=== PATIENT | male | born 1970 | race African-American/Black ===

== ENCOUNTER 2016-09-01 20:36 | Emergency (ER) | payer OTHER ==
[~2016-09-01] VITALS: Ht 186.7 cm; Wt 109.0 kg
[~2016-09-01 20:36] MED LIST: CYCL5TAB PO; NAPR-576 PO; VASE1025 PO
[2016-09-01 20:38] VITALS: BP 174/96; PULSE 96; RESP 16; TEMP 98; O2SAT 98
[2016-09-01] MEDS ORDERED: ENAL10TA PO (20:48)
[2016-09-01] MEDS ORDERED: ATOR20TA15 PO (20:49)
[2016-09-01] MEDS ORDERED: LISI10TA3 PO (20:49)
[2016-09-01] MEDS ORDERED: AMLO10TA2 PO (20:53)
[2016-09-01] MEDS ORDERED: HYDROCHLOROTHIAZIDE PO (20:54)
[2016-09-01] MEDS ORDERED: ENALAPRIL PO (20:54)
[2016-09-01 20:55] VITALS: BP 177/94; PULSE 64; RESP 18; O2SAT 99
[2016-09-01] MEDS ORDERED: MECLIZINE HCL 25 MG TAB PO ONE (21:00)
[2016-09-01] MEDS ORDERED: SODIUM CHLORIDE 0.9% FLUSH 5 ML FLUSH IVF PRN (21:00)
[2016-09-01] MEDS ORDERED: ONDANSETRON HCL 4 MG/2 ML VIAL IVP ONE (21:00)
[2016-09-01] MEDS ORDERED: SODIUM CHLOR 0.9% 1000 ML INJ 1,000 ML IV ONE (21:00)
--- NOTE | 2016-09-01 21:27 | PD ---
HPI Chief Complaint: Dizziness Time Seen by Provider: 21:20 Travel History International Travel<30 days: No Contact w/Intl Traveler<30days: No Traveled to known affect area: No History of Present Illness HPI 46-year-old male with a history of hypertension and hyperlipidemia presents to the emergency department for evaluation of dizziness, nausea and foreign body sensation in his throat. The patient states that the dizziness began about 4 days ago. States that he feels like his balance is a little off when he is walking and he feels dizziness when he gets up too quickly. States he also has had some associated nausea. Denies any vomiting. States that 2 days ago after he was eating a meal he felt as though he had something stuck in his throat. States that this sensation has persisted over the past several days. He is unsure what he was eating when this occurred. Denies any fever, chills, chest pain, shortness of breath, difficulty swallowing, difficulty breathing, sore throat, cough or cold symptoms, abdominal pain, numbness or tingling, weakness, headache. PCP is Dr. Fox. No other complaints. PFSH Past Medical History Cardiovascular Problems: Yes (HTN) High Cholesterol: Yes Diminished Hearing: No Hypertension: Yes Immunizations Current: No Tetanus Vaccination: Unknown Influenza Vaccination: No Social History Alcohol Use: Yes (occasional ) Tobacco Use: No Substance Use: No Allergies-Medications (Allergen,Severity, Reaction): Coded Allergies: No Known Allergies (Unverified , 09/01/16) Reported Meds & Prescriptions Reported Meds & Active Scripts Active Zofran (Ondansetron HCl) 4 Mg Tab 4 Mg PO Q8HR PRN Meclizine (Meclizine HCl) 25 Mg Tab 25 Mg PO TID PRN 7 Days Reported [Hctz/Enalapril] Unknown Dose PO Amlodipine (Amlodipine Besylate) 10 Mg Tab 10 Mg PO DAILY Atorvastatin (Atorvastatin Calcium) 20 Mg Tab 20 Mg PO HS Enalapril (Enalapril Maleate) 10 Mg Tab 10 Mg PO DAILY Review of Systems Except as stated in HPI: all other systems reviewed are Neg Physical Exam Narrative GENERAL: Well-nourished and well-developed pleasant male patient in no acute distress who is nontoxic appearing. SKIN: Warm and dry. HEAD: Normocephalic and atraumatic. EYES: No injection, drainage, or hyphema noted. PERRLA. EOMI. ENT: No nasal drainage noted. Oropharynx is clear and the airway is patent. Handling secretions without difficulty. TMs are normal with good landmarks. NECK: Supple and the trachea is midline. CARDIOVASCULAR: Regular rate and rhythm. RESPIRATORY: Breath sounds are equal bilaterally with no accessory muscle use, wheezing, rhonchi, or crackles. GASTROINTESTINAL: Abdomen is soft, non-tender, and nondistended. MUSCULOSKELETAL: No obvious deformities, swelling, cyanosis, or ecchymosis is present throughout the upper and lower extremities. Patient has full range of motion without any signs of neurovascular compromise. 5/5 upper and lower extremities equal bilaterally. NEUROLOGICAL: Awake, alert, and oriented. Normal finger to nose test. Normal [id number] test. Normal speech and gait. Cranial nerves are grossly intact. Data Data Last Documented VS Vital Signs Date Time Temp Pulse Resp B/P Pulse Ox O2 Delivery O2 Flow Rate FiO2 09/01/16 20:55 64 18 177/94 99 Room Air 09/01/16 20:38 98.0 Orders Electrocardiogram (09/01/16 21:00) Complete Blood Count With Diff (09/01/16 21:00) Comprehensive Metabolic Panel (09/01/16 21:00) Ecg Monitoring (09/01/16 21:00) Iv Access Insert/Monitor (09/01/16 21:00) Oximetry (09/01/16 21:00) Meclizine (Antivert) (09/01/16 21:00) Ondansetron Inj (Zofran Inj) (09/01/16 21:00) Sodium Chloride 0.9% Flush (Ns Flush) (09/01/16 21:00) Sodium Chlor 0.9% 1000 Ml Inj (Ns 1000 M (09/01/16 21:00) Lipase (09/01/16 21:00) Soft Tissue Neck (09/01/16 ) Potassium Cl 40 Meq/30 Ml Liq (Kcl 40 Me (09/01/16 22:30) Labs Laboratory Tests Test 09/01/16 21:10 White Blood Count 5.1 TH/MM3 Red Blood Count 4.54 MIL/MM3 Hemoglobin 12.9 GM/DL Hematocrit 39.0 % Mean Corpuscular Volume 85.8 FL Mean Corpuscular Hemoglobin 28.5 PG Mean Corpuscular Hemoglobin 33.2 % Concent Red Cell Distribution Width 13.1 % Platelet Count 194 TH/MM3 Mean Platelet Volume 10.0 FL Neutrophils (%) (Auto) 50.4 % Lymphocytes (%) (Auto) 35.3 % Monocytes (%) (Auto) 11.5 % Eosinophils (%) (Auto) 2.1 % Basophils (%) (Auto) 0.7 % Neutrophils # (Auto) 2.6 TH/MM3 Lymphocytes # (Auto) 1.8 TH/MM3 Monocytes # (Auto) 0.6 TH/MM3 Eosinophils # (Auto) 0.1 TH/MM3 Basophils # (Auto) 0.0 TH/MM3 CBC Comment DIFF FINAL Differential Comment Sodium Level 141 MEQ/L Potassium Level 3.1 MEQ/L Chloride Level 105 MEQ/L Carbon Dioxide Level 27.5 MEQ/L Anion Gap 9 MEQ/L Blood Urea Nitrogen 12 MG/DL Creatinine 0.80 MG/DL Estimat Glomerular Filtration 125 ML/MIN Rate Random Glucose 121 MG/DL Calcium Level 7.9 MG/DL Total Bilirubin 0.3 MG/DL Aspartate Amino Transf 16 U/L (AST/SGOT) Alanine Aminotransferase 28 U/L (ALT/SGPT) Alkaline Phosphatase 58 U/L Total Protein 6.8 GM/DL Albumin 3.2 GM/DL Lipase 111 U/L [facility] Medical Decision Making Medical Screen Exam Complete: Yes Emergency Medical Condition: Yes Differential Diagnosis Electrolyte abnormality versus vertigo versus dehydration versus foreign body sensation versus other Narrative Course 46-year-old male presents to the emergency department for evaluation of dizziness, nausea and form body sensation in the throat. Patient is afebrile. He is a little hypertensive with a blood pressure 177/94, admits that he did not take his blood pressure medication this morning like he normally does. Otherwise vital signs are stable. Physical examination is unremarkable. Patient appears very well overall. No focal neurologic deficits. IV access is obtained, labs drawn and sent. EKG shows sinus rhythm, no acute ST elevations or depressions. No prior for comparison. Patient is administered meclizine 50 mg orally, IV fluids and Zofran. X-ray soft tissue of the neck is negative for foreign body or any acute abnormality. CBC is unremarkable. CMP shows mild hypokalemia with a potassium of 3.1, normal platelets orally with 40 mEq by mouth. Otherwise unremarkable. Lipase is normal. Patient reassessed after receiving medications and reports improvement of symptoms. The patient's symptoms are consistent with vertigo. Discussed with him that this foreign body sensation in the throat will need to be evaluated by an ENT if it persists. He'll be discharged with meclizine and Zofran. Advised follow-up with his PCP. Patient verbalizes understanding and agreement with treatment plan. I discussed the case with my attending physician Dr. Haywood who is aware of the patients history, physical examination findings, and treatment plan. Diagnosis Primary Impression: Vertigo Additional Impression: Sensation of foreign body in throat Referrals: Primary Care Physician Patient Instructions: General Instructions, Vertigo (ED) Departure Forms: Tests/Procedures, Work Release Enter return to work date: Sep 06, 2016 Additional Instructions: Take medications as prescribed. Follow-up with your Primary Care Physician. Return to the ED for any acute worsening of symptoms. Med/Other Pt SpecificInfo: Prescription(s) given Scripts Ondansetron (Zofran)4 Mg Tab4 Mg PO Q8HR PRN (NAUSEA OR VOMITING) #10 TAB Ref 0 Prov:Thalia Haywood MD 09/01/16 Meclizine 25 Mg Tab25 Mg PO TID PRN (VERTIGO) 7 Days Ref 0 Prov:Thalia Haywood MD 09/01/16 Disposition: 01 DISCHARGE HOME Condition: Stable Nae Mendoza Sep 01, 2016 21:26
--- NOTE | 2016-09-01 21:32 | RADRPT ---
EXAM DATE/TIME: 09/01/2016 21:26 [facility] COMPARISON: No previous studies available for comparison. INDICATIONS : Patient states feels that something is stuck in his throat. He has had this feeling for a week and a half. MEDICAL HISTORY : None. SURGICAL HISTORY : None. ENCOUNTER: Initial ACUITY: 1 week PAIN SCORE: 0/10 LOCATION: Neck. FINDINGS: Two view examination of the soft tissues of the neck demonstrates the hypopharyngeal airway to have a grossly normal configuration. The trachea is midline. No radiopaque foreign bodies are seen. There is degenerative change anterior spurring of cervical spine most marked C3 through C. 5/6. Anterior s purring encroaches upon the retropharyngeal space and probably abuts the esophagus. In the appropriat e clinical setting this could be evaluated with a barium swallow on an elective outpatient basis. CONCLUSION: Negative for radiopaque foreign body. Anterior marginal spurs cervical spine C3 through C6 which mild ly encroaches upon the retropharyngeal space. Raffy Joe MD on September 01, 2016 at 21:28 Board Certified Radiologist. This report was verified electronically.
[2016-09-01 22:06] LABS: AUTOMATED NEUTROPHIL # 2.6 TH/MM3 (1.8-7.7); BASOPHIL % 0.7 % (0.0-2.0); EOSINOPHIL # 0.1 TH/MM3 (0-0.4); EOSINOPHIL % 2.1 % (0.0-4.0); HEMO FLAGS DIFF FINAL; LYMPH % 35.3 % (9.0-44.0); LYMPHOCYTE # 1.8 TH/MM3 (1.0-4.8); MEAN CELL VOLUME 85.8 FL (80.0-100.0); MEAN CORPUSCULAR HEMOGLOBIN 28.5 PG (27.0-34.0); MEAN CORPUSCULAR HGB CONC 33.2 % (32.0-36.0); MONO % 11.5 % (0.0-8.0); NEUT % 50.4 % (16.0-70.0); PLATELET COUNT 194 TH/MM3 (150-450); RED BLOOD COUNT 4.54 MIL/MM3 (4.50-5.90); RED CELL DISTRIBUTION WIDTH 13.1 % (11.6-17.2); WHITE BLOOD COUNT 5.1 TH/MM3 (4.0-11.0)
[2016-09-01 22:16] LABS: ANION GAP 9 MEQ/L (5-15); AST (GOT) 16 U/L (15-37); BICARBONATE 27.5 MEQ/L (21.0-32.0); BLOOD UREA NITROGEN 12 MG/DL (7-18); CHLORIDE 105 MEQ/L (98-107); GLOMERULAR FILTRATION RATE 125 ML/MIN (>89); POTASSIUM 3.1 MEQ/L (3.5-5.1); SODIUM (NA) 141 MEQ/L (136-145)
[2016-09-01 22:20] LABS: ALKALINE PHOSPHATASE 58 U/L (45-117); ALT (GPT) 28 U/L (12-78); TOTAL BILIRUBIN ADULT 0.3 MG/DL (0.2-1.0)
[2016-09-01] MEDS ORDERED: ZOFR4TAB PO (22:30)
[2016-09-01] MEDS ORDERED: MECL-62 PO (22:30)
[2016-09-01] MEDS ORDERED: POTASSIUM CL 40 MEQ/30 ML LIQ UDC PO ONE (22:30)
[2016-09-01 22:32] VITALS: BP 155/90; PULSE 65; RESP 18; O2SAT 98
--- NOTE | 2016-09-01 22:33 | PD ---
Physical Exam Date Seen by Provider: Sep 01, 2016 Narrative Patient presents with dizziness Data Data Last Documented VS Vital Signs Date Time Temp Pulse Resp B/P Pulse Ox O2 Delivery O2 Flow Rate FiO2 09/01/16 20:55 64 18 177/94 99 Room Air 09/01/16 20:38 98.0 Orders Electrocardiogram (09/01/16 21:00) Complete Blood Count With Diff (09/01/16 21:00) Comprehensive Metabolic Panel (09/01/16 21:00) Ecg Monitoring (09/01/16 21:00) Iv Access Insert/Monitor (09/01/16 21:00) Oximetry (09/01/16 21:00) Meclizine (Antivert) (09/01/16 21:00) Ondansetron Inj (Zofran Inj) (09/01/16 21:00) Sodium Chloride 0.9% Flush (Ns Flush) (09/01/16 21:00) Sodium Chlor 0.9% 1000 Ml Inj (Ns 1000 M (09/01/16 21:00) Lipase (09/01/16 21:00) Soft Tissue Neck (09/01/16 ) Potassium Cl 40 Meq/30 Ml Liq (Kcl 40 Me (09/01/16 22:30) Labs Laboratory Tests Test 09/01/16 21:10 White Blood Count 5.1 TH/MM3 Red Blood Count 4.54 MIL/MM3 Hemoglobin 12.9 GM/DL Hematocrit 39.0 % Mean Corpuscular Volume 85.8 FL Mean Corpuscular Hemoglobin 28.5 PG Mean Corpuscular Hemoglobin 33.2 % Concent Red Cell Distribution Width 13.1 % Platelet Count 194 TH/MM3 Mean Platelet Volume 10.0 FL Neutrophils (%) (Auto) 50.4 % Lymphocytes (%) (Auto) 35.3 % Monocytes (%) (Auto) 11.5 % Eosinophils (%) (Auto) 2.1 % Basophils (%) (Auto) 0.7 % Neutrophils # (Auto) 2.6 TH/MM3 Lymphocytes # (Auto) 1.8 TH/MM3 Monocytes # (Auto) 0.6 TH/MM3 Eosinophils # (Auto) 0.1 TH/MM3 Basophils # (Auto) 0.0 TH/MM3 CBC Comment DIFF FINAL Differential Comment Sodium Level 141 MEQ/L Potassium Level 3.1 MEQ/L Chloride Level 105 MEQ/L Carbon Dioxide Level 27.5 MEQ/L Anion Gap 9 MEQ/L Blood Urea Nitrogen 12 MG/DL Creatinine 0.80 MG/DL Estimat Glomerular Filtration 125 ML/MIN Rate Random Glucose 121 MG/DL Calcium Level 7.9 MG/DL Total Bilirubin 0.3 MG/DL Aspartate Amino Transf 16 U/L (AST/SGOT) Alanine Aminotransferase 28 U/L (ALT/SGPT) Alkaline Phosphatase 58 U/L Total Protein 6.8 GM/DL Albumin 3.2 GM/DL Lipase 111 U/L MDM Supervised Visit with TAWNYA: Yes Narrative Course I, Dr. Haywood, have reviewed the advance practice practitioner's documentation and am in agreement, met with the patient face to face, made the diagnosis, and the medical decision making was done by me. *My assessment and Findings: Patient is awake and alert and fully oriented. He states that his dizziness is resolved. Scripts Ondansetron (Zofran)4 Mg Tab4 Mg PO Q8HR PRN (NAUSEA OR VOMITING) #10 TAB Ref 0 Prov:Thalia Haywood MD 09/01/16 Meclizine 25 Mg Tab25 Mg PO TID PRN (VERTIGO) 7 Days Ref 0 Prov:Thalia Haywood MD 09/01/16 Thalia Haywood MD Sep 01, 2016 22:33
--- NOTE | 2016-09-02 17:23 | EKG ---
Date Performed: 09/01/2016 Time Performed: 21:24:51 PTAGE: 46 years EKG: Sinus rhythm WITH FIRST DEGREE AV BLOCK ABNORMAL ECG NO PREVIOUS TRACING DOCTOR: Rebecca Pruitt Interpretating Date/Time 09/02/2016 17:16:59
== END 2016-09-01 23:11 | disposition home or self-care (01) ==
LOC: NEPA 20:36
DX: R42 Dizziness and giddiness (principal); R09.89 Other specified symptoms and signs involving the circulatory and respiratory systems; I10 Essential (primary) hypertension
CPT/HCPCS: 70360; 80053; 83690; 85025; 93005; 96361; 96374; 99284; J2405; J7030

== ENCOUNTER 2016-09-05 15:15 | Emergency (ER) | payer OTHER ==
[~2016-09-05 15:15] MED LIST changes: +AMLO10TA2 PO; +ATOR20TA15 PO; -CYCL5TAB PO; +ENAL10TA PO; +ENALAPRIL PO; +HYDROCHLOROTHIAZIDE PO; +MECL-62 PO; -NAPR-576 PO; -VASE1025 PO; +ZOFR4TAB PO
[2016-09-05 15:16] VITALS: BP 161/98; PULSE 88; RESP 15; TEMP 97.9; O2SAT 99
== END 2016-09-05 15:30 | disposition left against medical advice (07) ==
LOC: NED 15:15
DX: R11.0 Nausea (principal); Z53.21 Procedure and treatment not carried out due to patient leaving prior to being seen by health care provider
CPT/HCPCS: 99281